=== PATIENT | male | born 1940 | race Caucasian/White ===

== ENCOUNTER 2019-08-26 09:46 | Inpatient (IN) | payer MEDICARE, OTHER ==
[2019-08-26 10:23] LABS: INR 0.97 (0.82-1.09)
[2019-08-26 10:36] LABS: Albumin 3.4 g/dL (3.2-5.2); Albumin/Globulin Ratio 1.2 (1-3); BUN/Creatinine Ratio 21.7 (8-20); Calcium 8.6 mg/dL (8.6-10.3); EGFR African American 74.6 (>60); EGFR Non-African American 61.7 (>60); Globulin 2.8 g/dL (2-4); Potassium 4.6 mmol/L (3.5-5.0); Total Bilirubin 1.9 mg/dL (0.2-1.0); Total Protein 6.2 g/dL (6.4-8.9)
[2019-08-26 10:46] LABS: Troponin I 3.55 ng/mL (<0.03)
[2019-08-26 10:54] LABS: ABS Basophils 0.6 10^3/ul (0-0.2); ABS Eosinophils 0.1 10^3/ul (0-0.6); ABS Lymphocytes 1.1 10^3/ul (1.0-4.8); ABS Monocytes 0.9 10^3/ul (0-0.8); ABS Neutrophils 7.4 10^3/ul (1.5-7.7); Eosinophil % 0.6 %; Hematocrit 35 % (42-52); Hemoglobin 11.3 g/dL (14.0-18.0); Lymphocyte % 10.8 %; Mean Corpuscular HGB Conc 33 g/dL (31-36); Mean Corpuscular Hemoglobin 36 pg (27-31); Mean Corpuscular Volume 109 fL (80-94); Mean Platelet Volume 10.7 fL (7.4-10.4); Platelet Count 128 10^3/uL (150-450); Red Blood Count 3.17 10^6 /uL (4.18-5.48); Red Cell Distribution Width 16 % (10-15); White Blood Count 10.1 10^3/uL (3.5-10.8)
[2019-08-26] MEDS ORDERED: Aspirin 81 mg CHEW TAB* 81 MG TAB.CHEW PO ONE (11:00)
[2019-08-26] MEDS ORDERED: NS 0.9% 1000 ML** 1,000 ML IV ONE ×2 (11:00→11:01)
--- NOTE | 2019-08-26 11:00 | ED ---
Shortness of Breath - HPI Summary HPI Summary: This patient is a 79 year old male presenting to [facility] with a cheif complaint of SOB since last 2 nights ago. He states patient was up most of the night last night with SOB and mild chest discomfort. He denies a Hx of any respiratory problems. He states it was initially caused by exertion before it affecting him at rest shortly after. He has no Hx of MS. He has a Hx of HTN. - History of Current Complaint Chief Complaint: EDShortnessOfBreath Time Seen by Provider: 08/26/19 10:52 Hx Obtained From: Patient Onset/Duration: Lasting Days - Allergy/Home Medications Allergies/Adverse Reactions: Allergies Allergy/AdvReac Type Severity Reaction Status Date / Time No Known Allergies Allergy Verified 08/26/19 09:50 Home Medications: Home Medications Allopurinol TAB* [Zyloprim 300 MG TAB*] 300 mg PO DAILY 08/26/19 [History Confirmed 08/26/19] Cyanocobalamin (Vitamin B-12) [B-12] 1,000 mcg PO DAILY 08/26/19 [History Confirmed 08/26/19] Lisinopril TAB* [Prinivil TAB*] 10 mg PO DAILY 08/26/19 [History Confirmed 08/26] Lovastatin (NF) [Mevacor (NF)] 20 mg PO 1700 08/26/19 [History Confirmed ] Metoprolol Tartrate TAB* [Lopressor TAB*] 50 mg PO BID 08/26/19 [History Confirmed 08/26/19] Multivit-Min/Folic/Vit K/Lycop [One Daily Mens 50+ Multiv] 1 tab PO DAILY [History Confirmed 08/26/19] PMH/Surg Hx/FS Hx/Imm Hx Cardiovascular History: Reports: Hx Hypertension Respiratory History: Denies: Hx Asthma Infectious Disease History: No Infectious Disease History: Denies: Traveled Outside the [place] in Last 30 Days - Family History Known Family History: Negative: Respiratory Disease, Seizure Disorder - Social History Substance Use Type: Reports: None Hx Tobacco Use: No Review of Systems Positive: Chest Pain Positive: Shortness Of Breath All Other Systems Reviewed And Are Negative: Yes Physical Exam - Summary Physical Exam Summary: Constitutional: Well-developed, Well-nourished, Alert. (-) Distressed Skin: Warm, Dry HENT: Normocephalic; Atraumatic Eyes: Conjunctiva normal Neck: Musculoskeletal ROM normal neck. (-) JVD, (-) Stridor, (-) Tracheal deviation Cardio: Rhythm regular, rate normal, Heart sounds normal; Intact distal pulses; Radial pulses are 2+ and symmetric. (-) Murmur Pulmonary/Chest wall: Effort normal. (-) Respiratory distress, (-) Wheezes, (-) Rales Abd: Soft, (-) tenderness, (-) Distension, (-) Guarding, (-) Rebound Musculoskeletal: (-) Edema Lymph: (-) Cervical adenopathy Neuro: Alert, Oriented x3 Psych: Mood and affect Normal Triage Information Reviewed: Yes Vital Signs On Initial Exam: Initial Vitals Temp Pulse Resp BP Pulse Ox 99.3 F 102 20 109/64 96 08/26/19 09:47 08/26/19 09:47 08/26/19 09:47 08/26/19 09:47 08/26/19 09:47 Vital Signs Reviewed: Yes Procedures - Sedation Patient Received Moderate/Deep Sedation with Procedure: No Diagnostics - Vital Signs Vital Signs Temp Pulse Resp BP Pulse Ox 08/26/19 09:47 99.3 F 102 20 109/64 96 - Laboratory Lab Results: Lab Results 08/26/19 08/26/19 08/26/19 Range/Units 10:03 10:03 10:03 WBC 10.1 (3.5-10.8) 10^3/uL RBC 3.17 L (4.18-5.48) 10^6 /uL Hgb 11.3 L (14.0-18.0) g/dL Hct 35 L (42-52) % MCV 109 H (80-94) fL MCH 36 H (27-31) pg MCHC 33 (31-36) g/dL RDW 16 H (10-15) % Plt Count 128 L (150-450) 10^3/uL MPV 10.7 H (7.4-10.4) fL Neut % (Auto) 73.6 % Lymph % (Auto) 10.8 % [place] % (Auto) 9.1 % Eos % (Auto) 0.6 % Baso % (Auto) 5.9 % Absolute Neuts (auto) 7.4 (1.5-7.7) 10^3/ul Absolute Lymphs (auto) 1.1 (1.0-4.8) 10^3/ul Absolute Monos (auto) 0.9 H (0-0.8) 10^3/ul Absolute Eos (auto) 0.1 (0-0.6) 10^3/ul Absolute Basos (auto) 0.6 H (0-0.2) 10^3/ul Absolute Nucleated RBC 0.0 10^3/ul Nucleated RBC % 0.0 INR (Anticoag Therapy) 0.97 (0.82-1.09) APTT Pending Sodium 140 (135-145) mmol/L Potassium 4.6 (3.5-5.0) mmol/L Chloride 110 (101-111) mmol/L Carbon Dioxide 21 L (22-32) mmol/L Anion Gap 9 (2-11) mmol/L BUN 25 H (6-24) mg/dL Creatinine 1.15 (0.67-1.17) mg/dL Est GFR ( Amer) 74.6 (>60) Est GFR (Non-Af Amer) 61.7 (>60) BUN/Creatinine Ratio 21.7 H (8-20) Glucose 156 H (70-100) mg/dL Calcium 8.6 (8.6-10.3) mg/dL Magnesium Pending Total Bilirubin 1.90 H (0.2-1.0) mg/dL AST 48 H (13-39) U/L ALT 19 (7-52) U/L Alkaline Phosphatase 89 (34-104) U/L Total Creatine Kinase Pending CK-MB (CK-2) Pending Troponin I 3.55 H* (<0.03) ng/mL Total Protein 6.2 L (6.4-8.9) g/dL Albumin 3.4 (3.2-5.2) g/dL Globulin 2.8 (2-4) g/dL Albumin/Globulin Ratio 1.2 (1-3) TSH Pending Result Diagrams: 08/26/19 10:03 08/26/19 10:03 Lab Statement: Any lab studies that have been ordered have been reviewed, and results considered in the medical decision making process. - Radiology CXR Radiology Interpretation Completed By: Radiologist Summary of Radiographic Findings: No acute cardiopulmonary disease by radiograph. ED Provider has reviewed this report. - EKG 0955 Cardiac Rate: NL - 97 BPM EKG Rhythm: Sinus Rhythm Summary of EKG Findings: No STEMI. TWI in III and aVF. ST Depression in V2-V6. Dr. Marlow has reviewed and interpreted this EKG. Course/Dx - Course Course Of Treatment: This patient is a 79 year old male presenting to [facility] with a chief complaint of SOB since last 2 nights ago. Physical exam was unremarkable. Troponin I was 3.55 H. Labs reveal RBC 3.17 L, Hgb 11.3 L, Hct 35 L, MCV 109 H, MCH 36 H, RDW 16 H, Plt Count 128 L, MPV 10.7 H, Absolute Monos 0.9 H, Absolute Basos 0.6 H. CO2 21 L, BUN 25 H, BUN/Creatinine Ratio 21.7 H, Glucose 156 H, Mg 1.4 L, Total Bilirubin 1.90 H, AST 48 H, Total Creatine Kinase 279 H, CK-MB 53.3 H, Total Protein 6.2 L. EKG at 0955 reveals TWI in III and aVF. ST Depression in V2-V6. No STEMI. Dr. Reaves, Hospitalist, accepted the patient for admission. This plan was discussed with the patient and he was agreeable with this plan. - Diagnoses Provider Diagnoses: NSTEMI (non-ST elevated myocardial infarction) - Critical Care Time Critical Care Time: 30-74 min - 60 minutes Discharge ED - Sign-Out/Discharge Documenting (check all that apply): Patient Departure - Admission - Discharge Plan Condition: Stable Disposition: ADMITTED TO [facility] - Billing Disposition and Condition Condition: STABLE Disposition: Admitted to [facility] - Attestation Statements Document Initiated by Farrukh: Yes Documenting Scribe: Andrew Castro Provider For Whom Farrukh is Documenting (Include Credential): Aneudy Marlow DO Scribmadeleine Attestation: Andrew Harman scribed for Aneudy Marlow DO on 08/26/19 at 1419. Scribe Documentation Reviewed: Yes Provider Attestation: The documentation as recorded by the Andrew silva accurately reflects the service I personally performed and the decisions made by , Aneudy Marlow DO Status of Scribe Document: Viewed
[2019-08-26 11:01] LABS: Magnesium 1.4 mg/dL (1.9-2.7)
[2019-08-26] MEDS ORDERED: Magnesium Sulfate 1 GM IV* 1 GM/100 ML BAG IV ONE (11:03)
[2019-08-26 11:06] LABS: CKMB ng/mL 53.3 ng/mL (0.6-6.3)
[2019-08-26 11:14] LABS: TSH (Thyroid Stimulating Horm) 3.39 mcIU/mL (0.34-5.60)
[2019-08-26 11:16] LABS: Activated Partial Thrombo Time 30.3 seconds (26.0-38.0)
[2019-08-26] MEDS: Heparin DRIP 25,000 UNITS(*) 25,000 UNITS/500 ML BAG IV SCH (12:12)
[2019-08-26] MEDS: Heparin VIAL(*) 5000 UNITS/ML VIAL (FIVE THOUSAND) IV PRN (12:28)
[2019-08-26] MEDS ORDERED: Ticagrelor* 90 MG TAB PO ONE (12:34)
[2019-08-26] MEDS ORDERED: Furosemide IV* 10 MG/ML 2 ML VIAL (20 MG) IV SLOW PU ONE (12:39)
[2019-08-26] MEDS ORDERED: Magnesium Sulfate IV* 3 GM in NS 0.9% 100 ML* 100 ML IVPB ONE (13:11)
[2019-08-26] MEDS ORDERED: Iodixanol* (CONTRAST) 320 MG/ML 100 ML SDV IV ONE (13:24)
[2019-08-26 13:28] LABS: Troponin I 7.8 ng/mL (<0.03)
[2019-08-26] MEDS ORDERED: Acetaminophen TAB* 325 MG PO PRN (14:19)
[2019-08-26] MEDS ORDERED: Thiamine INJ* 100 MG/ML 2 ML VIAL IM ONE (14:19)
--- NOTE | 2019-08-26 14:29 | HP ---
CC: Dr. Gayle; Dr. Parviz Tamayo HISTORY AND PHYSICAL: DATE OF ADMISSION: 08/26/19 TIME OF EVALUATION: 12:15 p.m. PRIMARY CARE PROVIDER: Dr. Gayle. CONSULTING PERITONEAL DIALYSIS REGISTERED NURSE: Parviz Tamayo DO CHIEF COMPLAINT: Shortness of breath. HISTORY OF PRESENT ILLNESS: Mr. Oliver is a 79-year-old male with a past medical history of hypertension, hyperlipidemia, right renal artery stenosis, status post angioplasty, who presented to the emergency room with complaints of shortness of breath. The patient states that he was in his usual state of health until 08/24/19 when he started to notice shortness of breath with exertion. He says that he was trying to cook and he would become short of breath. He would sit down at the kitchen table, rest, and he was able to continue his activities. He states that that night he had some shortness of breath while lying flat, but he sat up , felt better and was able to sleep after that. Yesterday, the symptoms were more intense and he had significant orthopnea and paroxysmal nocturnal dyspnea. He states that early this morning he called [facility] to be seen and he was advised to come to the emergency room for further evaluation. When asked about chest pain, the patient is adamant that he had no chest pain during his symptoms , but he does endorse some chest pressure that he describes as "it was difficult to take a deep breath." He denies palpitations, nausea, vomiting, diaphoresis. He states around [place] time his PCP stopped his hydrochlorothiazide and cut down his lisinopril from 20 to 10 mg p.o. daily. He states that he gained 8 pounds since that time that he attributed to worse diet as he states he has been snacking a lot. PAST MEDICAL HISTORY: 1. Hypertension. 2. Hyperlipidemia. 3. Gout. 4. Peripheral vascular disease with right renal artery stenosis, status post stent in 2002. MEDICATION LIST: 1. Allopurinol 300 mg p.o. daily. 2. Vitamin B12 1000 mcg p.o. daily. 3. Lisinopril 10 mg p.o. daily. 4. Lovastatin 20 mg p.o. daily. 5. Metoprolol tartrate 50 mg p.o. b.i.d. 6. Multivitamin 1 tablet p.o. daily. ALLERGIES: No known drug allergies. FAMILY HISTORY: His mother had a history of hypertension, heart disease. His father had a history of colon and prostate cancer. SOCIAL HISTORY: The patient was a smoker from his early 20s until age 49 up to a pack and half a day. He states that he drinks alcohol 3 days a week, usually a bottle of wine or half a bottle of bourbon, but he denies any history of alcohol withdrawal. No history of drug use. 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 REVIEW OF SYSTEMS: A 14-point review of systems was performed, and all the pertinent negatives and positive findings are in the HPI. PHYSICAL EXAMINATION GENERAL: The patient is a pleasant, elderly gentleman, sitting up in the ED stretcher, in no acute distress. VITAL SIGNS: Temperature 99.3, heart rate is 93, respiratory rate is 21, oxygen saturation is 96% on room air, and blood pressure is 105/63. NECK: There is JVD at 45 degrees. CHEST: Breath sounds bilaterally with right basilar crackles. CVS: Normal S1, S2. Regular rate and rhythm. ABDOMEN: Soft, nontender, and nondistended. Bowel sounds are present. EXTREMITIES: There is [id number] bilateral lower extremity pitting edema. No calf tenderness. NEUROLOGIC: He is alert and oriented x3. Able to move all 4 extremities. LABORATORY AND IMAGING DATA: The patient had a CBC that showed WBC of 10.1, hemoglobin of 11.3, hematocrit of 35, platelets of 128 with 73% neutrophils. INR is 0.97. Chemistry showed a sodium of 140, potassium of 4.6, chloride of 110, bicarb of 21, BUN of 25, creatinine of 1.15, glucose of 156, calcium of 8.6 , magnesium is 1.4. LFTs showed total bilirubin of 1.9, AST of 48, ALT of 19, total CK is 279, CK-MB 53. Troponin is 3.5. BNP is greater than 1300. TSH is 3.39. EKG showed sinus rhythm at 97 beats per minute with T-wave inversions in III and aVF. No prior EKG to compare. Chest x-ray showed no acute cardiopulmonary process by radiograph. ASSESSMENT AND PLAN: Mr. Oliver is a 79-year-old male with a past medical history of hypertension, hyperlipidemia, peripheral vascular disease (right renal artery stenosis with stent), who presented to the emergency room with complaints of dyspnea on exertion progressing with orthopnea and paroxysmal nocturnal dyspnea, found to have new congestive heart failure and likely acute coronary syndrome. 1. Acute coronary syndrome: The patient denies complaints of chest pain, but he has progressive dyspnea initially on exertion and now orthopnea and paroxysmal nocturnal dyspnea with T-wave inversions in inferior wall and initial troponin at 3.5. The patient will be admitted to telemetry floor. We will check serial troponins and he will be treated with aspirin, heparin drip, statin, and metoprolol. I discussed the case with Cardiology (Dr. Tamayo), who also recommended loading the patient with Brilinta. He will see the patient in consultation. We will order a transthoracic echocardiogram as I suspect his EF is likely depressed in the setting of possible ischemic disease and also considerable alcohol use. 2. Newly diagnosed congestive heart failure. The patient should have an echocardiogram. I suspect he likely has a depressed ejection fraction in the setting of ischemic disease and significant alcohol use. I believe this has probably been going on for some time, but it has been exacerbated now as his diuretic was discontinued about a month ago and he endorses weight gain of at least 8 pounds since. He has been noncompliant with his diet with his telling that he has been eating more snacks including pretzels, but I believe that there is likely an ischemic component driving the worsening of his congestive heart failure. We will continue diuresis with furosemide as tolerated. I suspect his minimal troponin elevation is likely secondary to liver congestion. 3. Alcohol use. Patient endorses significant alcohol intake three days a week but denies prior episodes of withdrawal. Will place on [facility] protocol and monitor. 4. Hypomagnesemia. We will replete. 5. Hypertension. His blood pressure is on the lower side, so for now I am going to hold his lisinopril and continue metoprolol at a lower dose of 25 mg p.o. twice a day with holding parameters. She will have enough blood pressure room for diuresis. 6. Hyperlipidemia. We will continue statin, but we will change to high dose atorvastatin. We will check a fasting lipid profile. 7. Gout. We will continue allopurinol. 8. DVT prophylaxis. The patient has a score of 3 on the DVT Prophylaxis Assessment Guide and he is on a heparin drip. 9. Code status is full. TIME SPENT: Approximately 60 minutes was spent with the patient interview, medical record review, physical examination to complete admission, more than half of this time was spent [id number] with the patient and coordination of care. [id number]/[facility] #: [id number] MTDD
[2019-08-26] MEDS ORDERED: LORazepam TAB(*) 1 MG PO SCH (15:00)
[2019-08-26] MEDS ORDERED: Furosemide IV* 10 MG/ML 2 ML VIAL (20 MG) IV ONE (15:49)
[2019-08-26] MEDS ORDERED: Metoprolol Tartrate TAB* 25 MG PO ONE (15:50)
--- NOTE | 2019-08-26 16:02 | CONSULT ---
Subjective Date of Service: 08/26/19 Interval History: Admission Date: 08/26/19 Consult Date 08/26/2019 Service: Hospitalist PCP: Dr. Gayle CHIEF COMPLAINT: Shortness of breath Reason for consult: CHF, [place] HISTORY OF PRESENT ILLNESS: Mr. Oliver is a 79-year-old man with a history as below. He was in his usual state of health until this past when he developed INTERIANO with activity and later orthopnea and PND. He also at some point had bilateral arm "tiredness" at night and some upper chest "rattling." He currently denies any symptoms at rest but does become dyspneic with conversation. Had fluid retention in the past related to cirrhosis and had been on several diuretics, most recent HCTZ not currently. PAST MEDICAL HISTORY: 1. Hypertension. 2. Hyperlipidemia. 3. Gout. 4. Peripheral vascular disease with right renal artery stenosis, status post stent in 2002. 5. Intermittent alcoholism 6. Cirrhosis 7. Alcohol neuropathy ALLERGIES: No known drug allergies. FAMILY HISTORY: His mother had a history of hypertension, heart disease. His father had a history of colon and prostate cancer. SOCIAL HISTORY: The patient was a smoker from his early 20s until age 49 up to a pack and half a day. Had drank very heavily previously, quit for a year due to liver disease, restarted about 6 weeks ago at 2 bottles or a bottle of bourbon a week. No history of drug use. 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 Medications Active Medications: Acetaminophen (Tylenol Tab*) 650 mg PO Q4H PRN PRN Reason: MILD PAIN or TEMP > 100.4 Allopurinol (Zyloprim Tab*) 300 mg PO DAILY TYREL Aspirin (Aspirin Ec Tab*) 81 mg PO DAILY TYREL Atorvastatin Calcium (Lipitor*) 80 mg PO 2100 ONE Stop: 08/26/19 21:01 Cyanocobalamin (Vitamin B12 Tab*) 1,000 mcg PO DAILY TYREL Folic Acid (Folvite Tab*) 1 mg PO DAILY TYREL Heparin Sodium (Porcine) (Heparin Vial(*)) 0 units IV .BOLUS PRN PRN Reason: BOLUS PER HEPARIN DRIP Last Admin: 08/26/19 12:28 Dose: 4,000 units Heparin Sodium/Dextrose (Heparin Drip 25,000 Units(*)) 25,000 units in 500 mls @ 0 mls/hr IV PER RATE [facility]; Protocol Last Admin: 08/26/19 12:12 Dose: 20 mls/hr Lorazepam (Ativan Tab(*)) 0 - 6 mg PO .PER [facility] PROTOCOL [facility]; Protocol Metoprolol Tartrate (Lopressor Tab*) 25 mg PO BID [facility] Multivitamins/Minerals (Theragran/Minerals Tab*) 1 tab PO DAILY [facility] Thiamine HCl (Vitamin B-1 Tab*) 100 mg PO DAILY [facility] Ticagrelor (Brilinta*) 90 mg PO BID [facility] Home Medications: Allopurinol TAB* [Zyloprim 300 MG TAB*] 300 mg PO DAILY 08/26/19 [History Confirmed 08/26/19] Cyanocobalamin (Vitamin B-12) [B-12] 1,000 mcg PO DAILY 08/26/19 [History Confirmed 08/26/19] Lisinopril TAB* [Prinivil TAB*] 10 mg PO DAILY 08/26/19 [History Confirmed 08/26] Lovastatin (NF) [Mevacor (NF)] 20 mg PO 1700 08/26/19 [History Confirmed ] Metoprolol Tartrate TAB* [Lopressor TAB*] 50 mg PO BID 08/26/19 [History Confirmed 08/26/19] Multivit-Min/Folic/Vit K/Lycop [One Daily Mens 50+ Multiv] 1 tab PO DAILY [History Confirmed 08/26/19] Review of Systems - Measurements Intake and Output: Intake and Output Last 24 Hours 08/24/19 08/25/19 08/26/19 08/27/19 06:59 06:59 06:59 06:59 Intake Total 500 Output Total 275 Balance 225 Weight 189 lb 12.8 oz Intake: IV Fluids 150 Oral 350 Output: Urine 275 - Review of Systems Constitutional Symptoms: Positive: Weight Loss Negative: Weight Gain, Fever, Night Sweats Dermatology: Negative: Rash, Skin Lesions HEENT: Negative: Change in Hearing, Vertigo Eyes: Negative: Change in Vision, Double Vision Thyroid: Positive: Weight Loss Negative: Palpitations, Weight Gain Pulmonary: Positive: Shortness of Breath, Exercise Intolerance Negative: Cough, Sputum, Hemoptysis, COPD, Asthma, Home Oxygen Cardiology: Positive: Shortness of Breath, Swelling of Ankles, Edema, Paroxysmal Nocturnal Dyspnea, Orthopnea Negative: Palpitations, Peripheral Vascular Dis, Faintness, Syncope, Claudication Gastroenterology: Negative: Blood in Stools, Haematemesis, Melena Review of Systems Statement: All other review of systems negative, unless stated above. Objective Vital Signs: Temp Pulse Resp BP Pulse Ox 97.8 F 88 22 117/68 99 08/26/19 15:19 08/26/19 15:19 08/26/19 15:19 08/26/19 15:19 08/26/19 15:19 Oxygen Devices in Use Now: None Appearance: not toxic appearing, very pleasant Ears/Nose/Mouth/Throat: Clear Oropharnyx, Mucous Membranes Moist Neck: Trachea Midline, - - uncertain jvp Respiratory: - - mild tachypnea and increased work of breathing, mild rales bases Cardiovascular: RRR, - - no significant murmur, mild edema Abdominal: NL Sounds; No Tenderness; No Distention Extremities: No Clubbing, Cyanosis Skin: No Rash or Ulcers Neurological: Alert and Oriented x 3 Laboratory Results: 08/26/19 10:03 08/26/19 10:03 INR (Anticoag Therapy) 0.97 (0.82-1.09) 08/26/19 10:03 APTT 30.3 seconds (26.0-38.0) 08/26/19 10:03 Total Bilirubin 1.90 mg/dL (0.2-1.0) H 08/26/19 10:03 AST 48 U/L (13-39) H 08/26/19 10:03 ALT 19 U/L (7-52) 08/26/19 10:03 Alkaline Phosphatase 89 U/L (34-104) 08/26/19 10:03 CK-MB (CK-2) 53.3 ng/mL (0.6-6.3) H 08/26/19 10:03 B-Natriuretic Peptide > 1300 pg/mL (<=100) H 08/26/19 10:03 Total Protein 6.2 g/dL (6.4-8.9) L 08/26/19 10:03 Albumin 3.4 g/dL (3.2-5.2) 08/26/19 10:03 Globulin 2.8 g/dL (2-4) 08/26/19 10:03 Albumin/Globulin Ratio 1.2 (1-3) 08/26/19 10:03 TSH 3.39 mcIU/mL (0.34-5.60) 08/26/19 10:03 08/26/19 08/26/19 10:03 13:02 Troponin I 3.55 H* 7.80 H* Diagnostic Imaging: Exam Date: 08/26/19 CTA CHEST IMPRESSION: 1. No pulmonary embolism 2. Right-sided heart failure suggested by contrast reflux into the hepatic veins. 3. Interstitial pulmonary edema with small bilateral pleural effusions. 4. Cirrhotic morphology of the liver suspected. Further evaluation by right upper quadrant ultrasound on an elective basis is recommended. 5. Gynecomastia. EKG Data: ekg 08/26/2019 NSR, < [address] elevation inferior leads with St depression precordial and 1/aVL ekg repeat today improvement of all st segment changes with persistent inferior T wave inversions Assessment/Plan 1. ACS 2. CHF 3. Alcohol cirrhosis 4. Macrocytic anemia - continue aspirin 81 mg po daily, brilinta 90 mg po bid (was loaded with 180 mg ) and heparin gtt - continue metoprolol, dose reduction from home noted - Hold AceI for now - ETOH withdrawal protocol - Lipitor daily, LFt's noted - Lasix 20 mg IV x 1 repeat now (ordered) - GI consult, ordered and discussed with Dr. Nolen - Prior records (requested) - Repeat EKG tomorrow (ordered) and trend cTnI to peak - Echocardiogram tomorrow - Cardiac catheterization with intent for revascularization indicated and recommended. Risks, benefits and alternatives discussed and patient wishes to proceed. Will plan pending GI evaluation Thank you for allowing me to participate in the cardiovascular care of this patient. Please do not hesitate to contact me with questions or concerns.
[2019-08-26 16:42] LABS: Troponin I 8.27 ng/mL (<0.03)
[2019-08-26 19:05] LABS: EGFR African American 65.9 (>60); EGFR Non-African American 54.5 (>60)
[2019-08-26] MEDS: Metoprolol Tartrate TAB* 25 MG PO SCH (20:09)
[2019-08-26] MEDS ORDERED: Atorvastatin* 80 MG TAB PO ONE (21:00)
[2019-08-26] MEDS ORDERED: Metoprolol Tartrate TAB* 50 mg PO SCH (21:00)
[2019-08-26 22:22] LABS: Troponin I 19.11 ng/mL (<0.03)
[2019-08-27 01:34] LABS: Troponin I 19.55 ng/mL (<0.03)
[2019-08-27 05:53] LABS: BUN/Creatinine Ratio 24.4 (8-20); Calcium 8.3 mg/dL (8.6-10.3); EGFR African American 71.7 (>60); EGFR Non-African American 59.3 (>60); HDL Cholesterol 59.2 mg/dL; Magnesium 1.9 mg/dL (1.9-2.7)
[2019-08-27 05:59] LABS: ABS Eosinophils 0.2 10^3/ul (0-0.6); ABS Lymphocytes 1.5 10^3/ul (1.0-4.8); ABS Monocytes 0.8 10^3/ul (0-0.8); ABS Neutrophils 6.6 10^3/ul (1.5-7.7); Eosinophil % 1.7 %; Hematocrit 34 % (42-52); Hemoglobin 11.2 g/dL (14.0-18.0); Lymphocyte % 16.5 %; Mean Corpuscular HGB Conc 34 g/dL (31-36); Mean Corpuscular Hemoglobin 36 pg (27-31); Mean Corpuscular Volume 108 fL (80-94); Mean Platelet Volume 11.1 fL (7.4-10.4); Nucleated Red Blood Cells % 0.1; Platelet Count 116 10^3/uL (150-450); Red Blood Count 3.09 10^6 /uL (4.18-5.48); Red Cell Distribution Width 16 % (10-15); White Blood Count 9.2 10^3/uL (3.5-10.8)
[2019-08-27 06:13] LABS: Troponin I 14.72 ng/mL (<0.03)
[2019-08-27] MEDS: Heparin VIAL(*) 5000 UNITS/ML VIAL (FIVE THOUSAND) IV PRN ×2 (06:19→21:28)
[2019-08-27] MEDS: Allopurinol TAB* 300 MG PO SCH (08:15)
[2019-08-27] MEDS: Thiamine TAB* 100 MG TAB PO SCH (08:15)
[2019-08-27] MEDS: Ticagrelor* 90 MG TAB PO SCH ×2 (08:15→21:36)
[2019-08-27] MEDS: Cyanocobalamin TAB* 500 MCG PO SCH (08:15)
[2019-08-27] MEDS: Aspirin EC TAB* 81 MG TAB.EC PO SCH (08:15)
[2019-08-27] MEDS: Multivitamins/Minerals TAB PO SCH (08:15)
[2019-08-27] MEDS: Folic Acid TAB* 1 MG PO SCH (08:15)
[2019-08-27] MEDS: Metoprolol Tartrate TAB* 25 MG PO SCH (08:15)
[2019-08-27] MEDS ORDERED: Furosemide IV* 10 MG/ML VIAL (40 MG) IV SLOW PU ONE (08:26)
[2019-08-27] MEDS ORDERED: Lisinopril TAB* 10 MG PO SCH (09:00)
[2019-08-27] MEDS ORDERED: Furosemide IV* 10 MG/ML 2 ML VIAL (20 MG) IV SLOW PU ONE (11:00)
[2019-08-27] MEDS ORDERED: Metoprolol Succinate XL TAB* 25 MG PO ONE (11:12)
--- NOTE | 2019-08-27 11:25 | ECHO ---
*[facility]* [place] [address] Fax #: [phone] Transthoracic Echocardiogram Patient: Vipul Oliver : 1940 Study Date: 08/27/2019 Age: 79 Gender: M HR: 97 bpm Height: 71 in /180.3 cm BSA: 2.02 m^2 Weight: 179.6 lb /81.6 kg BMI: 25.1 kg/m^2 *Flocculator Operator: Kizzy Michael *Referring Physician: * Monica HerbertReading Physician: * Parviz Tamayo MD Indications: Congestive Heart Failure. History: Risk factors: COPD. Hypertension. Conclusions Summary: - Left ventricle: The cavity size is normal. Wall thickness is mildly increased. Systolic function is reduced study is non-diagnostic to evaluate LVEF or wall motion - Right ventricle: Not well visualized. - Atrial septum: No defect or patent foramen ovale is identified. - Pulmonary arteries: Systolic pressure can not be accurately estimated. - No significant valvular abnormalities noted. Recommendations: None prior for comparison, will arrange limited study with definity Wednesday08/28/2019 Study data: Transthoracic echocardiogram. Procedure: Transthoracic echocardiography was performed. Image quality was suboptimal. Complete 2D, spectral Doppler, and color flow Doppler. Location: Bedside. Patient status: Inpatient. Patient room number: 441-0-1. Rhythm: Atrial fibrillation. Findings Left ventricle: The cavity size is normal. Wall thickness is mildly increased. Systolic function is reduced study is non-diagnostic to evaluate LVEF or wall motion Left ventricular diastolic function parameters are indeterminate. Right ventricle: Not well visualized. Left atrium: The atrium is moderately dilated. Right atrium: The atrium is dilated. Atrial septum: No defect or patent foramen ovale is identified. Mitral valve: Appears calcified. The leaflets are normal thickness. No echocardiographic evidence for prolapse. There is no evidence of stenosis. There is mild regurgitation. Aortic valve: The valve is trileaflet. The leaflets are mildly calcified. There is no evidence of stenosis. There is trace regurgitation. Tricuspid valve: The valve is structurally normal. There is no evidence of stenosis. There is trace regurgitation. Pulmonic valve: The valve is structurally normal. There is no evidence of stenosis. There is trace regurgitation. Aorta: The aortic root appears normal. The aortic arch appears normal. Pericardium: There is no significant pericardial effusion. Pulmonary arteries: Systolic pressure can not be accurately estimated. Systemic veins: Inferior vena cava: The vessel is normal in size. There is (>= 50%) respiratory change in the IVC dimension. Pulmonary veins: The Pulmonary veins appear normal. Measurements Left ventricle Value Ref Right atrium Value Ref CORAL, LAX 5.3 cm 4.2 - SI dim, ES (H) 5.4 cm 3.4 - 5.3 5.8 ML dim, ES, A4C (H) 4.5 cm 2.6 - 4.4 ESD, LAX 3.6 cm 2.5 - SI dim, ES, A4C (H) 5.4 cm 3.4 - 5.3 4.0 FS, LAX 32 % Aortic valve Value Ref PW, ED, LAX (H) 1.4 cm 0.6 - Peak v, S 1.19 m/sec --------- 1.0 VTI, S 27.0 cm --------- FS 32 % Mean grad, S 3.0 mm Hg --------- Mid-wall FS 13 % -------- Peak grad, S 6.0 mm Hg --------- PW, ED (H) 1.4 cm 0.6 - DHRUV, VTI 2.51 cm^2 --------- 1.0 DHRUV, Vmax 2.28 cm^2 --------- PW/ID, ED 0.26 -------- E', lat claudine, TDI 10.1 cm/sec >=10.0 Mitral valve Value Ref E/e', lat claudine, TDI 8 -------- Peak E 0.82 m/sec ------ --- E', med claudine, TDI 7.4 cm/sec >=7.0 Peak A 0.69 m/sec --- ------ E/e', med claudine, TDI 11 -------- Decel time 227 ms ------ --- E', avg, TDI 8.8 cm/sec -------- Peak grad, D 2.7 mm Hg ------ --- E/e', avg, TDI 9 <=14 Peak E/A ratio 1.2 --- ------ LVOT Value Ref Pulmonic valve Value Ref Diam, S 2.00 cm -------- Peak v, S 0.76 m/sec --------- Area 3.1 cm^2 -------- Peak grad, S 2.0 mm Hg --------- Peak sally, S 0.87 m/sec -------- Mean grad, S 2 mm Hg -------- Aortic root Value Ref SV 68 ml -------- Root diam 3.6 cm <4.2 Ventricular septum Value Ref Ascending aorta Value Ref IVS, ED (H) 1.4 cm 0.6 - AAo AP diam, S 3.6 cm --------- 1.0 Decending aorta Value Ref Right ventricle Value Ref Jasmine peak sally 0.82 m/sec --------- CORAL, LAX 3.6 cm -------- CORAL minor ax, A4C (H) 3.7 cm 1.9 - Inferior vena cava Value Ref mid 3.5 Diam 2.2 cm --------- Left atrium Value Ref ML dim, A4C 4.4 cm -------- SI dim, A4C 4.6 cm -------- Vol/bsa, ES, 1-p (H) 42 ml/m^2 12 - 37 A4C Vol/bsa, ES, A/L (H) 66 ml/m^2 16 - 34 Legend: (L) and (H) samaria values outside specified reference range. Prepared and electronically signed by Parviz Tamayo MD 08/27/2019 11:17
--- NOTE | 2019-08-27 11:46 | PN ---
Subjective Date of Service: 08/27/19 Interval History: HOSPITALIST PROGRESS NOTE Patient seen and examined at bedside. Care reviewed and d/w Nicole Anguiano RN. He states he had a better night last night. Still needs HOB elevation, but was able to sleep more than at home. Denies chest pain or pressure, palpitations. Appetite is preserved, denies N/V. Family History: Unchanged from Admission Social History: Unchanged from Admission Past Medical History: Unchanged from Admission Objective Active Medications: Acetaminophen (Tylenol Tab*) 650 mg PO Q4H PRN PRN Reason: MILD PAIN or TEMP > 100.4 Allopurinol (Zyloprim Tab*) 300 mg PO DAILY [facility] Last Admin: 08/27/19 08:15 Dose: 300 mg Aspirin (Aspirin Ec Tab*) 81 mg PO DAILY [facility] Last Admin: 08/27/19 08:15 Dose: 81 mg Atorvastatin Calcium (Lipitor*) 40 mg PO 2100 [facility] Cyanocobalamin (Vitamin B12 Tab*) 1,000 mcg PO DAILY [facility] Last Admin: 08/27/19 08:15 Dose: 1,000 mcg Folic Acid (Folvite Tab*) 1 mg PO DAILY [facility] Last Admin: 08/27/19 08:15 Dose: 1 mg Heparin Sodium (Porcine) (Heparin Vial(*)) 0 units IV .BOLUS PRN PRN Reason: BOLUS PER HEPARIN DRIP Last Admin: 08/27/19 06:19 Dose: 2,000 units Heparin Sodium/Dextrose (Heparin Drip 25,000 Units(*)) 25,000 units in 500 mls @ 0 mls/hr IV PER RATE [facility]; Protocol Last Admin: 08/26/19 12:12 Dose: 20 mls/hr Lorazepam (Ativan Tab(*)) 0 - 6 mg PO .PER [facility] PROTOCOL [facility]; Protocol Last Admin: 08/27/19 02:27 Dose: 2 mg Metoprolol Succinate (Toprol Xl Tab*) 50 mg PO BID [facility] Multivitamins/Minerals (Theragran/Minerals Tab*) 1 tab PO DAILY [facility] Last Admin: 08/27/19 08:15 Dose: 1 tab Thiamine HCl (Vitamin B-1 Tab*) 100 mg PO DAILY [facility] Last Admin: 08/27/19 08:15 Dose: 100 mg Ticagrelor (Brilinta*) 90 mg PO BID [facility] Last Admin: 08/27/19 08:15 Dose: 90 mg Vital Signs - 8 hr 08/27/19 08/27/19 08/27/19 04:03 04:27 06:00 Temperature 97.6 F 98.1 F Pulse Rate 90 103 Respiratory 16 16 16 Rate Blood Pressure 110/55 126/67 (mmHg) O2 Sat by Pulse 95 98 Oximetry 08/27/19 08/27/19 08/27/19 08:00 10:00 11:19 Temperature 97.3 F 98.4 F Pulse Rate 90 95 102 Respiratory 20 20 32 Rate Blood Pressure 138/71 119/62 (mmHg) O2 Sat by Pulse 96 95 95 Oximetry Oxygen Devices in Use Now: None Appearance: Elderly gentleman sitting up in bed in NAD, eating breakfast. Eyes: No Scleral Icterus Ears/Nose/Mouth/Throat: Mucous Membranes Moist Neck: Trachea Midline Respiratory: Symmetrical Chest Expansion and Respiratory Effort, - - BS+ bilaterally wit bilateral crackles Cardiovascular: RRR - Normal S1 and S2 Abdominal: NL Sounds; No Tenderness; No Distention Extremities: - - Bilateral LE mild to moderate pitting edema Neurological: Alert and Oriented x 3, NL Muscle Strength and Tone Nutrition: Taking PO's Result Diagrams: 08/27/19 05:11 08/27/19 05:11 Assess/Plan/Problems-Billing Assessment: Mr Oliver is a 79yo M with PMH of HTN, HLD, gout, right renal artery stenosis s/p stent, alcohol abuse, liver cirrhosis, who presented to ED with c/ o progressive dyspnea, found to have ACS and newly diagnosed CHF. - Patient Problems (1) CHF (congestive heart failure) Comment: - Newly diagnosed, awaiting echocardiogram. - Continue diuresis with Furosemide. - It could be associated with ischemic CMP, but it could also be ETOH induced. (2) ACS (acute coronary syndrome) Comment: - Troponin peaked at 19.5. - Chest pain free all along. - Cardiology input appreciated. - Continue Aspirin, Brilinta, Heparin drip, Metoprolol, and Atorvastatin. (3) Alcohol abuse Comment: - Continue WAM protocol. (4) Liver cirrhosis Comment: - Patient continues to drink. - GI evaluation prior to cardiac cath. (5) Gout Comment: - Continue Allopurinol. (6) DVT prophylaxis Comment: - Heparin drip. (7) Full code status Status and Disposition: Inpatient.
[2019-08-27] MEDS ORDERED: Magnesium Sulfate 2 GM IV* 2 GM/50 ML BAG IVPB ONE (12:12)
--- NOTE | 2019-08-27 12:29 | PN ---
Subjective Date of Service: 08/27/19 Interval History: f/u ACS, CHF, alcohol cirrhosis - Diuresing, breathing improving - no chest discomfort - echo no significant valve issues, moderate LV dysfunction non-diagnostic tele: NSR, sinus tachycardia, no arrhythmias Medications Active Medications: Acetaminophen (Tylenol Tab*) 650 mg PO Q4H PRN PRN Reason: MILD PAIN or TEMP > 100.4 Allopurinol (Zyloprim Tab*) 300 mg PO DAILY [facility] Last Admin: 08/27/19 08:15 Dose: 300 mg Aspirin (Aspirin Ec Tab*) 81 mg PO DAILY [facility] Last Admin: 08/27/19 08:15 Dose: 81 mg Atorvastatin Calcium (Lipitor*) 40 mg PO 2100 [facility] Cyanocobalamin (Vitamin B12 Tab*) 1,000 mcg PO DAILY [facility] Last Admin: 08/27/19 08:15 Dose: 1,000 mcg Folic Acid (Folvite Tab*) 1 mg PO DAILY [facility] Last Admin: 08/27/19 08:15 Dose: 1 mg Furosemide (Lasix Tab*) 20 mg PO DAILY [facility] Heparin Sodium (Porcine) (Heparin Vial(*)) 0 units IV .BOLUS PRN PRN Reason: BOLUS PER HEPARIN DRIP Last Admin: 08/27/19 06:19 Dose: 2,000 units Heparin Sodium/Dextrose (Heparin Drip 25,000 Units(*)) 25,000 units in 500 mls @ 0 mls/hr IV PER RATE [facility]; Protocol Last Admin: 08/26/19 12:12 Dose: 20 mls/hr Magnesium Sulfate (Magnesium Sulfate 2 Gm Iv*) 2 gm in 50 mls @ 50 mls/hr IVPB ONCE ONE Stop: 08/27/19 13:11 Lisinopril (Prinivil Tab*) 2.5 mg PO DAILY [facility] Lorazepam (Ativan Tab(*)) 0 - 6 mg PO .PER [facility] PROTOCOL [facility]; Protocol Last Admin: 08/27/19 02:27 Dose: 2 mg Metoprolol Succinate (Toprol Xl Tab*) 50 mg PO BID [facility] Multivitamins/Minerals (Theragran/Minerals Tab*) 1 tab PO DAILY [facility] Last Admin: 08/27/19 08:15 Dose: 1 tab Thiamine HCl (Vitamin B-1 Tab*) 100 mg PO DAILY [facility] Last Admin: 08/27/19 08:15 Dose: 100 mg Ticagrelor (Brilinta*) 90 mg PO BID [facility] Last Admin: 08/27/19 08:15 Dose: 90 mg Objective Vital Signs: Temp Pulse Resp BP Pulse Ox 98.4 F 102 32 119/62 95 08/27/19 10:00 08/27/19 11:19 08/27/19 11:19 08/27/19 10:00 08/27/19 11:19 Oxygen Devices in Use Now: None Appearance: not toxic appearing, very pleasant Ears/Nose/Mouth/Throat: Clear Oropharnyx, Mucous Membranes Moist Neck: Trachea Midline, - - uncertain jvp Respiratory: - - mild tachypnea and increased work of breathing, mild rales bases Cardiovascular: RRR, - - no significant murmur, mild edema Abdominal: NL Sounds; No Tenderness; No Distention Extremities: No Clubbing, Cyanosis Skin: No Rash or Ulcers Neurological: Alert and Oriented x 3 Laboratory Results: 08/27/19 05:11 08/27/19 05:11 INR (Anticoag Therapy) 0.97 (0.82-1.09) 08/26/19 10:03 APTT 52.8 seconds (26.0-38.0) H 08/27/19 05:11 Total Bilirubin 1.90 mg/dL (0.2-1.0) H 08/26/19 10:03 AST 48 U/L (13-39) H 08/26/19 10:03 ALT 19 U/L (7-52) 08/26/19 10:03 Alkaline Phosphatase 89 U/L (34-104) 08/26/19 10:03 CK-MB (CK-2) 53.3 ng/mL (0.6-6.3) H 08/26/19 10:03 B-Natriuretic Peptide > 1300 pg/mL (<=100) H 08/26/19 10:03 Total Protein 6.2 g/dL (6.4-8.9) L 08/26/19 10:03 Albumin 3.4 g/dL (3.2-5.2) 08/26/19 10:03 Globulin 2.8 g/dL (2-4) 08/26/19 10:03 Albumin/Globulin Ratio 1.2 (1-3) 08/26/19 10:03 Triglycerides 57 mg/dL 08/27/19 05:11 Cholesterol 107 mg/dL 08/27/19 05:11 LDL Cholesterol 36 mg/dL 08/27/19 05:11 HDL Cholesterol 59.2 mg/dL 08/27/19 05:11 TSH 3.39 mcIU/mL (0.34-5.60) 08/26/19 10:03 08/26/19 08/26/19 08/26/19 10:03 13:02 16:01 Troponin I 3.55 H* 7.80 H* 8.27 H* 08/26/19 08/27/19 08/27/19 21:52 01:05 05:11 Troponin I 19.11 H* 19.55 H* 14.72 H* Diagnostic Imaging: Exam Date: 08/26/19 CTA CHEST IMPRESSION: 1. No pulmonary embolism 2. Right-sided heart failure suggested by contrast reflux into the hepatic veins. 3. Interstitial pulmonary edema with small bilateral pleural effusions. 4. Cirrhotic morphology of the liver suspected. Further evaluation by right upper quadrant ultrasound on an elective basis is recommended. 5. Gynecomastia. EKG Data: ekg 08/26/2019 NSR, < [address] elevation inferior leads with St depression precordial and 1/aVL ekg repeat 08/26/[address] segment changes with persistent inferior T wave inversions ekg 08/27 nsr 100 bpm, inferior and precordial ischemia s/t changes Transthoracic Echocardiogram Study Date: 08/27/2019 Conclusions Summary: - Left ventricle: The cavity size is normal. Wall thickness is mildly increased. Systolic function is reduced study is non-diagnostic to evaluate LVEF or wall motion - Right ventricle: Not well visualized. - Atrial septum: No defect or patent foramen ovale is identified. - Pulmonary arteries: Systolic pressure can not be accurately estimated. - No significant valvular abnormalities noted. Recommendations: None prior for comparison, will arrange limited study with definity Wednesday08/28/2019 Assessment/Plan 1. ACS 2. CHF 3. Alcohol cirrhosis 4. Macrocytic anemia - continue aspirin 81 mg po daily, brilinta 90 mg po bid and heparin gtt - change metoprolol to long acting 50 mg po bid (Ordered) - restart home lisinopril at 2.5 (home dose 10) - ordered - lasix 20 mg po daily (ordered) - ETOH withdrawal protocol - Lipitor 40 mg daily, LFt's and lipids noted noted - GI consult recommendations (Dr. Nolen) pending - Prior records requested - Repeat limited echo Wednesday with definity - check b12 and folate - ordered (supplementation noted) - recheck bnp and troponin 2/3 (ordered) - Cardiac catheterization with intent for revascularization indicated and recommended. Risks, benefits and alternatives discussed and patient wishes to proceed. Will plan pending GI evaluation Thank you for allowing me to participate in the cardiovascular care of this patient. Please do not hesitate to contact me with questions or concerns.
[2019-08-27] MEDS: Heparin DRIP 25,000 UNITS(*) 25,000 UNITS/500 ML BAG IV SCH (13:34)
--- NOTE | 2019-08-27 17:54 | CONS ---
GASTROENTEROLOGY CONSULTATION DATE OF CONSULT: 09/14 CONSULTING PHYSICIANS: Dr. Monica Marion, Dr. Parviz Tamayo, Dr. Lucio Gayle. REASON FOR CONSULTATION: Macrocytic anemia in a man with recent CT, some congestive failure and a known history of compensated cirrhosis. HISTORY: This 79-year-old man developed shortness of breath. There was uncertainty as to whether he had chest pain, but he did describe discomfort. His troponins have gone up. He was short of breath in the hospital and earlier today received IV furosemide. Cardiac catheterization is being strongly considered, but his risk for dual- antiplatelet therapy following probable implantation of a drug-eluting stent is a major issue. He has a history of hypertension and had renal artery stenting here by Dr Leal in 2002. At home, he has been treated with antihypertensives and statin. He has a history of heavy drinking and gave it up for 18 to 24 months few years back and then gradually began having wine at social events and then more frequently and he says he began drinking bourbon around 6 weeks ago. He had been a smoker for many years up until about age 49. PAST MEDICAL HISTORY: 1. Hypertension - treated by Dr. Gayle. 2. Renal artery stenosis - treated by Dr. Leal in 2002. 3. Dyslipidemia - on a statin. 4. Cirrhosis - he says suspicion about this began when he had ecchymosis on his arms. He was taking aspirin and reduced it to just a baby aspirin. He was also found to be thrombocytopenia. There was edema and fluid accumulation and he was placed on diuretics by a nurse practitioner in the [place] gastroenterology office. He says his potassium plummeted and he stopped it. He has not been back on diuretics except possibly a thiazide which he stopped somewhere around [place]. He has not been seen back by the gastroenterology office for 3 years. FAMILY HISTORY: No history of liver disease. His mother had hypertension. 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 REVIEW OF SYSTEMS: He has constipation from time to time, but does not take laxatives. He has never been treated for a peptic condition and Dr. Gayle has not needed to treat him for any gastrointestinal concerns. He denies NSAID use other than the low dose aspirin. Multiple trade names are reviewed. Over the last year in general, he has been trying to lose weight, saying he has been on a 1000 calorie diet and has taken off 40 pounds. He has had numerous colonoscopies, but maintains nothing has been seen on them. The last two have been done by Dr Osorio through the [facility]. Remarkably, he had no hospital visits between April 2004 and admission yesterday. There is a history of gout. EXAM: Earlier today, he was short of breath in bed and even sitting slightly up at 30 degrees. His weight is listed at 188, temperature 98.4, pulse 100 and regular, blood pressure 118/60. Skin shows multiple ecchymoses over forearms HEENT exam is remarkable for some balding, but no other abnormality. He is anicteric. He has no adenopathy. Breath sounds are intact and clear bilaterally (after diuresis). Heart tones regular. The abdomen is symmetric, minimally obese without any palpable abnormality. There is no distention. He has no peripheral edema. Digital rectal shows greasy, very soft brown stool - Hemoccult negative LABS: Hemoglobin 11.2, hematocrit 34, MCV 108, platelets 116. INR 0.97. AST 48, ALT 19, bilirubin 1.9, albumin 3.4. TSH 3.39. His troponins are up, maximum of 19.55 at 1 a.m. and bilirubin 1.9. Echocardiogram - pending RADIOLOGY REVIEW: The CT of the chest with contrast (pulmonary embolism protocol) shows a normal azygos vein, unremarkable appearing mid to distal esophagus. There are dilated vessels in the cleft between the 2 hepatic lobes and a couple of vascular structures presumably veins just anterior to the liver. There is no ascites. 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 He had some ascites then and despite some drinking after it and now more recently with signs in his transaminases of possible early alcoholic hepatitis at this time, he has not had a persistent ascites problem. His hepatic function is mostly compensated, though the albumin of 3.4 and the bilirubin 1.9 likely reflect some impairment. Fortunately, his INR is normal. The question is what is his risk of gastrointestinal bleeding should cardiac catheterization and stent placement be done with dual antiplatelet treatment This is certainly elevated though most studies suggest for most patients that usual cardiac care be given. Further prognostication could be obtained by a liver Doppler ultrasound and if he qualifies for monitored anesthesia, an upper endoscopy to look for portal hypertensive gastropathy.and varices. Empiric PPI therapy during antiplatelet treatment would certainly be indicated almost regardless. [id number]/[facility] #: [id number] MTDD
[2019-08-27] MEDS: Metoprolol Succinate XL TAB* 50 MG PO SCH (21:36)
[2019-08-27] MEDS: Atorvastatin* 40 MG TAB PO SCH (21:36)
[2019-08-28] MEDS ORDERED: Magnesium Sulfate 1 GM IV* 1 GM/100 ML BAG IV ONE (01:27)
[2019-08-28 06:04] LABS: ABS Eosinophils 0.4 10^3/ul (0-0.6); ABS Lymphocytes 1.7 10^3/ul (1.0-4.8); ABS Monocytes 0.8 10^3/ul (0-0.8); ABS Neutrophils 4.7 10^3/ul (1.5-7.7); Eosinophil % 5.5 %; Hematocrit 33 % (42-52); Hemoglobin 11.1 g/dL (14.0-18.0); Mean Corpuscular HGB Conc 34 g/dL (31-36); Mean Corpuscular Hemoglobin 36 pg (27-31); Mean Corpuscular Volume 107 fL (80-94); Mean Platelet Volume 10.7 fL (7.4-10.4); Nucleated Red Blood Cells % 0.1; Platelet Count 124 10^3/uL (150-450); Red Blood Count 3.07 10^6 /uL (4.18-5.48); Red Cell Distribution Width 15 % (10-15); White Blood Count 7.6 10^3/uL (3.5-10.8)
[2019-08-28 06:06] LABS: Anion Gap 6 mmol/L (2-11); BUN/Creatinine Ratio 29.1 (8-20); Blood Urea Nitrogen 34 mg/dL (6-24); CO2 Carbon Dioxide 23 mmol/L (22-32); Calcium 8.2 mg/dL (8.6-10.3); Chloride 108 mmol/L (101-111); EGFR African American 73.1 (>60); EGFR Non-African American 60.4 (>60); Glucose 108 mg/dL (70-100); Potassium 3.7 mmol/L (3.5-5.0); Sodium 137 mmol/L (135-145)
[2019-08-28 06:11] LABS: Troponin I 8.45 ng/mL (<0.03)
[2019-08-28 06:57] LABS: Folate > 20.00 ng/mL (>3.99)
[2019-08-28] MEDS ORDERED: Perflutren Lipid Microsphere* 3 ML VIAL ONE (07:39)
[2019-08-28] MEDS: Metoprolol Succinate XL TAB* 50 MG PO SCH ×2 (09:11→21:57)
[2019-08-28] MEDS: Cyanocobalamin TAB* 500 MCG PO SCH (09:11)
[2019-08-28] MEDS: Ticagrelor* 90 MG TAB PO SCH ×2 (09:11→21:57)
[2019-08-28] MEDS: Aspirin EC TAB* 81 MG TAB.EC PO SCH (09:12)
[2019-08-28] MEDS: Multivitamins/Minerals TAB PO SCH (09:12)
[2019-08-28] MEDS: Lisinopril TAB* 5 MG PO SCH (09:12)
[2019-08-28] MEDS: Thiamine TAB* 100 MG TAB PO SCH (09:12)
[2019-08-28] MEDS: Allopurinol TAB* 300 MG PO SCH (09:12)
[2019-08-28] MEDS: Folic Acid TAB* 1 MG PO SCH (09:12)
[2019-08-28] MEDS: Furosemide TAB* 20 MG PO SCH (09:13)
--- NOTE | 2019-08-28 09:55 | PN ---
Subjective Date of Service: 08/28/19 - NSTEMI Interval History: f/u ACS, CHF, alcohol cirrhosis - Diuresing, breathing improving - no chest discomfort since Wednesday per patient. - echo no significant valve issues, moderate LV dysfunction non-diagnostic, repeat limited is pending. -+ brown urine ? d/t liver disease. Per nurse has been intermittent for the past 24 hours, patient states it is usually " yellow" at home Medications Active Medications: Acetaminophen (Tylenol Tab*) 650 mg PO Q4H PRN PRN Reason: MILD PAIN or TEMP > 100.4 Allopurinol (Zyloprim Tab*) 300 mg PO DAILY [facility] Last Admin: 08/28/19 09:12 Dose: 300 mg Aspirin (Aspirin Ec Tab*) 81 mg PO DAILY [facility] Last Admin: 08/28/19 09:12 Dose: 81 mg Atorvastatin Calcium (Lipitor*) 40 mg PO 2100 [facility] Last Admin: 08/27/19 21:36 Dose: 40 mg Cyanocobalamin (Vitamin B12 Tab*) 1,000 mcg PO DAILY [facility] Last Admin: 08/28/19 09:11 Dose: 1,000 mcg Folic Acid (Folvite Tab*) 1 mg PO DAILY [facility] Last Admin: 08/28/19 09:12 Dose: 1 mg Furosemide (Lasix Tab*) 20 mg PO DAILY [facility] Last Admin: 08/28/19 09:13 Dose: 20 mg Heparin Sodium (Porcine) (Heparin Vial(*)) 0 units IV .BOLUS PRN PRN Reason: BOLUS PER HEPARIN DRIP Last Admin: 08/27/19 21:28 Dose: 4,000 units Heparin Sodium/Dextrose (Heparin Drip 25,000 Units(*)) 25,000 units in 500 mls @ 0 mls/hr IV PER RATE [facility]; Protocol Last Admin: 08/27/19 13:34 Dose: 23 mls/hr Lisinopril (Prinivil Tab*) 2.5 mg PO DAILY [facility] Last Admin: 08/28/19 09:12 Dose: 2.5 mg Lorazepam (Ativan Tab(*)) 0 - 6 mg PO .PER [facility] PROTOCOL [facility]; Protocol Last Admin: 08/27/19 02:27 Dose: 2 mg Metoprolol Succinate (Toprol Xl Tab*) 50 mg PO BID [facility] Last Admin: 08/28/19 09:11 Dose: 50 mg Multivitamins/Minerals (Theragran/Minerals Tab*) 1 tab PO DAILY [facility] Last Admin: 08/28/19 09:12 Dose: 1 tab Thiamine HCl (Vitamin B-1 Tab*) 100 mg PO DAILY [facility] Last Admin: 08/28/19 09:12 Dose: 100 mg Ticagrelor (Brilinta*) 90 mg PO BID [facility] Last Admin: 08/28/19 09:11 Dose: 90 mg Objective Vital Signs: Temp Pulse Resp BP Pulse Ox 97.6 F 79 16 117/66 100 08/28/19 08:00 08/28/19 08:00 08/28/19 08:00 08/28/19 08:00 08/28/19 08:00 Oxygen Devices in Use Now: Nasal Cannula Appearance: not toxic appearing, very pleasant Ears/Nose/Mouth/Throat: Clear Oropharnyx, Mucous Membranes Moist Neck: Trachea Midline, - - uncertain jvp Respiratory: - - mild tachypnea and increased work of breathing, mild rales bases Cardiovascular: RRR, - - + mitral murmur. no gallop or rub Abdominal: NL Sounds; No Tenderness; No Distention Extremities: No Clubbing, Cyanosis Skin: No Rash or Ulcers Neurological: Alert and Oriented x 3 Lines/Tubes/Other Access: Clean, Dry and Intact Peripheral IV Laboratory Results: 08/28/19 05:37 08/28/19 05:37 INR (Anticoag Therapy) 0.97 (0.82-1.09) 08/26/19 10:03 APTT 85.7 seconds (26.0-38.0) H 08/28/19 03:26 Total Bilirubin 1.90 mg/dL (0.2-1.0) H 08/26/19 10:03 AST 48 U/L (13-39) H 08/26/19 10:03 ALT 19 U/L (7-52) 08/26/19 10:03 Alkaline Phosphatase 89 U/L (34-104) 08/26/19 10:03 CK-MB (CK-2) 53.3 ng/mL (0.6-6.3) H 08/26/19 10:03 B-Natriuretic Peptide > 1300 pg/mL (<=100) H 08/28/19 05:37 Total Protein 6.2 g/dL (6.4-8.9) L 08/26/19 10:03 Albumin 3.4 g/dL (3.2-5.2) 08/26/19 10:03 Globulin 2.8 g/dL (2-4) 08/26/19 10:03 Albumin/Globulin Ratio 1.2 (1-3) 08/26/19 10:03 Triglycerides 57 mg/dL 08/27/19 05:11 Cholesterol 107 mg/dL 08/27/19 05:11 LDL Cholesterol 36 mg/dL 08/27/19 05:11 HDL Cholesterol 59.2 mg/dL 08/27/19 05:11 TSH 3.39 mcIU/mL (0.34-5.60) 08/26/19 10:03 08/26/19 08/26/19 08/26/19 10:03 13:02 16:01 Troponin I 3.55 H* 7.80 H* 8.27 H* 08/26/19 08/27/19 08/27/19 21:52 01:05 05:11 Troponin I 19.11 H* 19.55 H* 14.72 H* 08/28/19 05:37 Troponin I 8.45 H* Laboratory Results - last 24 hr 08/27/19 08/27/19 08/28/19 12:25 18:23 03:26 WBC RBC Hgb Hct MCV MCH MCHC RDW Plt Count MPV Neut % (Auto) Lymph % (Auto) [place] % (Auto) Eos % (Auto) Baso % (Auto) Absolute Neuts (auto) Absolute Lymphs (auto) Absolute Monos (auto) Absolute Eos (auto) Absolute Basos (auto) Absolute Nucleated RBC Nucleated RBC % APTT 63.9 H 34.9 85.7 H Sodium Potassium Chloride Carbon Dioxide Anion Gap BUN Creatinine Est GFR ( Amer) Est GFR (Non-Af Amer) BUN/Creatinine Ratio Glucose Calcium Magnesium Troponin I B-Natriuretic Peptide Vitamin B12 Folate 08/28/19 08/28/19 08/28/19 05:37 05:37 05:37 WBC 7.6 RBC 3.07 L Hgb 11.1 L Hct 33 L MCV 107 H MCH 36 H MCHC 34 RDW 15 Plt Count 124 L MPV 10.7 H Neut % (Auto) 61.4 Lymph % (Auto) 22.0 [place] % (Auto) 10.5 Eos % (Auto) 5.5 Baso % (Auto) 0.6 Absolute Neuts (auto) 4.7 Absolute Lymphs (auto) 1.7 Absolute Monos (auto) 0.8 Absolute Eos (auto) 0.4 Absolute Basos (auto) 0.0 Absolute Nucleated RBC 0.0 Nucleated RBC % 0.1 APTT Sodium 137 Potassium 3.7 Chloride 108 Carbon Dioxide 23 Anion Gap 6 BUN 34 H Creatinine 1.17 Est GFR ( Amer) 73.1 Est GFR (Non-Af Amer) 60.4 BUN/Creatinine Ratio 29.1 H Glucose 108 H Calcium 8.2 L Magnesium 2.0 Troponin I 8.45 H* B-Natriuretic Peptide > 1300 H Vitamin B12 1070 H Folate > 20.00 Diagnostic Imaging: Exam Date: 08/26/19 CTA CHEST IMPRESSION: 1. No pulmonary embolism 2. Right-sided heart failure suggested by contrast reflux into the hepatic veins. 3. Interstitial pulmonary edema with small bilateral pleural effusions. 4. Cirrhotic morphology of the liver suspected. Further evaluation by right upper quadrant ultrasound on an elective basis is recommended. 5. Gynecomastia. EKG Data: ekg 08/26/2019 NSR, < [address] elevation inferior leads with St depression precordial and 1/aVL ekg repeat 08/26/[address] segment changes with persistent inferior T wave inversions ekg 08/27 nsr 100 bpm, inferior and precordial ischemia s/t changes ekg 08/28; Sinus rhythm rate 90 with inferolateral TWI. Transthoracic Echocardiogram Study Date: 08/27/2019 Conclusions Summary: - Left ventricle: The cavity size is normal. Wall thickness is mildly increased. Systolic function is reduced study is non-diagnostic to evaluate LVEF or wall motion - Right ventricle: Not well visualized. - Atrial septum: No defect or patent foramen ovale is identified. - Pulmonary arteries: Systolic pressure can not be accurately estimated. - No significant valvular abnormalities noted. Recommendations: None prior for comparison, will arrange limited study with definity Wednesday08/28/2019 Assessment/Plan #1 NSTEMI; Sudden onset c/o chest pain with SOB, last episode was Wednesday. Troponin peaked at 19.5 08/27/2019. ECG shows new inferolateral TWI. On ASA 81/day , Brilinta 90 BID, IV heparin therapy. Given Troponin has peaked and is trending down with no recurrent symptoms will d/c IV heparin. Continue DAPT. He is to have EGD today to determine if there is any presence of esophageal varices to help risk stratify bleeding risk for potential cardiac catheterization given h/o cirrhosis and thrombocytopenia. He does have new + dark brown urine. Although this is new since starting ASA and Brilinta therapy it could be due to cirrhosis. UA updated. To have limited echo today. Continue bblocker and statin therapy. #2 H/o Cirrhosis; GI following. PLTs stable on DAPT. reported history of alcoholism with recent relapse. #3 Macrocytic anemia; hgb stable. likely due to above #2. #4 Thrombocytopenia; Plts are 124,000 appears to be stable on DAPT. #5 Disposition pending course, patient full code. I reviewed indication for LHC , risk/benefits. he is aware that he is to have an EGD today to help risk stratify bleeding risk given h/o cirrhosis and potential need for DAPT given NSTEMI. Of note he has new dark brown urine noted at bedside. I updated a UA. This has occurred since he was placed on DAPT. He readily admits to being off of ASA since the fall, thus was not taking it routinely for several months leading up to his hospitalization. will continue medical therapy and await GI recommendations following EGD. Discussed with Dr. Cassidy who agrees with above assessment and plan. Attending: Roshan Cassidy
[2019-08-28 10:03] LABS: Urine Appearance Cloudy; Urine Bilirubin Negative (Negative); Urine Blood 3+ (Negative); Urine Color Amber; Urine Glucose Negative (Negative); Urine Ketones Negative (Negative); Urine Nitrite Negative (Negative); Urine Protein 2+(100 mg/dL) (Negative); Urine Specific Gravity 1.017 (1.010-1.030); Urine Urobilinogen Negative (Negative)
[2019-08-28 10:08] LABS: Urine Bacteria Absent (Absent); Urine Red Blood Cell 3+(>10/hpf) (Absent); Urine White Blood Cell 3+(>20/hpf) (Absent)
--- NOTE | 2019-08-28 12:45 | ECHO ---
*[facility]* [place] [address] Fax #: [phone] Limited Transthoracic Echocardiogram Patient: Vipul Oliver : 1940 Study Date: 08/28/2019 Age: 79 Gender: M HR: 79 bpm Height: 70.9 in /180 cm BSA: 2.09 m^2 Weight: 189.2 lb /86 kg BMI: 26.5 kg/m^2 *Seam Stayer: * Calli Pabon [facility] *Referring Physician: * Parviz Tamayo MD *Reading Physician: * Roshan Cassidy MD Indications: Congestive Heart Failure. History: Chronic obstructive pulmonary disease. Risk factors: Hypertension. Conclusions Summary: - Left ventricle: Not well visualized. The estimated ejection fraction is 25-30%. Diffuse hypokinesis with regional variations. - Compared to complete study of 08/27/2019, the left ventricle function is better visualized Study data: Transthoracic echocardiogram, limited study. Procedure: Transthoracic echocardiography was performed. Image quality was suboptimal. Intravenous Definity , 4 mlswas administered. Location: Bedside. Patient status: Inpatient. Patient room number: 441 01. Rhythm: Atrial fibrillation. Findings Left ventricle: Not well visualized. The estimated ejection fraction is 25-30%. Diffuse hypokinesis with regional variations. Prepared and electronically signed by Roshan Cassidy MD 08/28/2019 12:45
[2019-08-28] MEDS ORDERED: fentaNYL* 50 MCG/ML 2 ML VIAL (100 MCG VIAL) ONE (14:05)
[2019-08-28] MEDS ORDERED: Midazolam* 1 MG/ML 10 ML VIAL (10 MG) ONE (14:05)
--- NOTE | 2019-08-28 14:27 | PN ---
Progress Note - Progress Note Date of Service: 08/28/19 Note: EGD report: 3 mg IV versed, no fent E---->no varices, large HH G--->no gastric varices, no PHG, no ulcers, hpylori bx Pending D--->nml No signs/stigmata of bleeding, cleared from GI for Cath D/w Dr Khanh Pedraza MD
--- NOTE | 2019-08-28 14:59 | PN ---
Subjective Date of Service: 08/28/19 Interval History: HOSPITALIST PROGRESS NOTE Patient seen and examined at bedside. Care reviewed and d/w Nicole Anguiano RN. He feels better today. Breathing is easier, denies chest pressure. Family History: Unchanged from Admission Social History: Unchanged from Admission Past Medical History: Unchanged from Admission Objective Active Medications: Acetaminophen (Tylenol Tab*) 650 mg PO Q4H PRN PRN Reason: MILD PAIN or TEMP > 100.4 Allopurinol (Zyloprim Tab*) 300 mg PO DAILY [facility] Last Admin: 08/28/19 09:12 Dose: 300 mg Aspirin (Aspirin Ec Tab*) 81 mg PO DAILY [facility] Last Admin: 08/28/19 09:12 Dose: 81 mg Atorvastatin Calcium (Lipitor*) 40 mg PO 2100 [facility] Last Admin: 08/27/19 21:36 Dose: 40 mg Cyanocobalamin (Vitamin B12 Tab*) 1,000 mcg PO DAILY [facility] Last Admin: 08/28/19 09:11 Dose: 1,000 mcg Folic Acid (Folvite Tab*) 1 mg PO DAILY [facility] Last Admin: 08/28/19 09:12 Dose: 1 mg Furosemide (Lasix Tab*) 20 mg PO DAILY [facility] Last Admin: 08/28/19 09:13 Dose: 20 mg Heparin Sodium (Porcine) (Heparin Vial(*)) 0 units IV .BOLUS PRN PRN Reason: BOLUS PER HEPARIN DRIP Last Admin: 08/27/19 21:28 Dose: 4,000 units Lisinopril (Prinivil Tab*) 2.5 mg PO DAILY [facility] Last Admin: 08/28/19 09:12 Dose: 2.5 mg Lorazepam (Ativan Tab(*)) 0 - 6 mg PO .PER [facility] PROTOCOL [facility]; Protocol Last Admin: 08/27/19 02:27 Dose: 2 mg Metoprolol Succinate (Toprol Xl Tab*) 50 mg PO BID [facility] Last Admin: 08/28/19 09:11 Dose: 50 mg Multivitamins/Minerals (Theragran/Minerals Tab*) 1 tab PO DAILY [facility] Last Admin: 08/28/19 09:12 Dose: 1 tab Thiamine HCl (Vitamin B-1 Tab*) 100 mg PO DAILY [facility] Last Admin: 08/28/19 09:12 Dose: 100 mg Ticagrelor (Brilinta*) 90 mg PO BID [facility] Last Admin: 08/28/19 09:11 Dose: 90 mg Vital Signs - 8 hr 08/28/19 08/28/19 08:00 10:00 Temperature 97.6 F 97.8 F Pulse Rate 79 76 Respiratory 16 20 Rate Blood Pressure 117/66 114/59 (mmHg) O2 Sat by Pulse 100 99 Oximetry Oxygen Devices in Use Now: Nasal Cannula Appearance: Pleasant elderly gentleman sitting up in bed in NAD Eyes: No Scleral Icterus Ears/Nose/Mouth/Throat: Mucous Membranes Moist Neck: Trachea Midline Respiratory: Symmetrical Chest Expansion and Respiratory Effort, - - BS+ bilaterally with faint bibasilar crackles Cardiovascular: RRR - Notmal S1 and S2 Extremities: - - Mild bilateral LE edema Neurological: Alert and Oriented x 3, NL Muscle Strength and Tone Result Diagrams: 08/28/19 05:37 08/28/19 05:37 Assess/Plan/Problems-Billing Assessment: Mr Oliver is a 79yo M with PMH of HTN, HLD, gout, right renal artery stenosis s/p stent, alcohol abuse, liver cirrhosis, who presented to ED with c/ o progressive dyspnea, found to have ACS and newly diagnosed CHF. - Patient Problems (1) CHF (congestive heart failure) Comment: - Newly diagnosed. - Echocardiogram showed EF 25-30% with diffuse hypokinesis with regional variations. - Continue diuresis with Furosemide. - It could be associated with ischemic CMP, but it could also be ETOH induced. (2) ACS (acute coronary syndrome) Comment: - Troponin peaked at 19.5. - Chest pain free all along. - Cardiology input appreciated. - Continue Aspirin, Brilinta, Metoprolol, and Atorvastatin. - D/c heparin drip. - Plan for cardiac cath after GI evaluation completed. (3) Alcohol abuse Comment: - Continue WAM protocol. (4) Liver cirrhosis Comment: - Patient continues to drink. - GI evaluation prior to cardiac cath. (5) Gout Comment: - Continue Allopurinol. (6) DVT prophylaxis Comment: - SQ Heparin. (7) Full code status Status and Disposition: Inpatient.
--- NOTE | 2019-08-28 15:48 | PRO ---
CC: Dr. Lucio Gayle * DATE OF PROCEDURE: 08/28/2019. PROCEDURE PERFORMED: EGD. INDICATION: Preoperative evaluation for a cardiac catheterization, history of cirrhosis, evaluation of varices. REFERRING PHYSICIAN: Dr. Lucio Gayle. MEDICATIONS GIVEN: 3 mg IV Versed, no Demerol or Fentanyl. PROCEDURE: After the EGD procedure, including the risks, benefits, and alternatives, not limited to perforation, surgery and/or were explained to the patient, written consent was then obtained. IV medication was given and a bite- block was placed between the teeth. An Olympus pediatric gastroscope was then inserted into the patient's mouth, advanced down the esophagus, into the stomach and into the distal duodenum. In the esophagus at the GE junction, the Z-line was intact. No erosive esophagitis, stricture, or ring was seen. No esophageal varices were seen. The scope was advanced through the GE junction into the body of the stomach. Retroflex view was unremarkable. No gastric varices were seen. Forward view also was unremarkable. An H. pylori biopsy was obtained. The scope was advanced through a widely patent pylorus, into the duodenal bulb, and into the distal duodenum, both of which were unremarkable. The scope was then withdrawn from the patient. He tolerated the procedure well and was returned to the recovery room in stable condition. IMPRESSION: 1. Complete upper endoscopy into the distal duodenum with biopsies. 2. Biopsy for H. pylori. 3. No abnormalities were seen that could be a potential for bleeding sites, especially any ulcers or varices. This was communicated with his drop man, Dr. Cassidy. [id number]/[facility] #: [id number] [facility]
[2019-08-28] MEDS: Atorvastatin* 40 MG TAB PO SCH (21:57)
[2019-08-28] MEDS: Heparin VIAL(*) 5000 UNITS/ML VIAL (FIVE THOUSAND) SUBCUT SCH (21:57)
[2019-08-28] MEDS ORDERED: NS 0.9% 1000 ML** 1,000 ML IV SCH (23:55)
[2019-08-29] MEDS: Heparin VIAL(*) 5000 UNITS/ML VIAL (FIVE THOUSAND) SUBCUT SCH ×4 (05:07→20:57)
[2019-08-29] MEDS ORDERED: Diazepam TAB(*) 5 MG PO PRN (08:00)
[2019-08-29] MEDS ORDERED: diPHENhydraMINE PO* 25 MG PO PRN (08:00)
[2019-08-29] MEDS: Thiamine TAB* 100 MG TAB PO SCH (08:47)
[2019-08-29] MEDS: Furosemide TAB* 20 MG PO SCH (08:47)
[2019-08-29] MEDS: Metoprolol Succinate XL TAB* 50 MG PO SCH ×2 (08:47→22:41)
[2019-08-29] MEDS: Cyanocobalamin TAB* 500 MCG PO SCH (08:47)
[2019-08-29] MEDS: Ticagrelor* 90 MG TAB PO SCH (08:47)
[2019-08-29] MEDS: Folic Acid TAB* 1 MG PO SCH (08:47)
[2019-08-29] MEDS: Lisinopril TAB* 5 MG PO SCH (08:47)
[2019-08-29] MEDS: Allopurinol TAB* 300 MG PO SCH (08:47)
[2019-08-29] MEDS: Multivitamins/Minerals TAB PO SCH (08:47)
[2019-08-29] MEDS: Aspirin EC TAB* 81 MG TAB.EC PO SCH (08:47)
[2019-08-29] MEDS ORDERED: fentaNYL* 50 MCG/ML 2 ML VIAL (100 MCG VIAL) ONE (09:58)
[2019-08-29] MEDS ORDERED: Heparin(*) 1000 UNIT/ML 10 ML VIAL CATH LAB IV ONE (09:58)
[2019-08-29] MEDS ORDERED: Midazolam* 1 MG/ML 5 ML VIAL (5 MG) ONE (09:58)
[2019-08-29] MEDS ORDERED: diPHENhydraMINE PO* 25 MG ONE (09:59)
[2019-08-29] MEDS ORDERED: Diazepam TAB(*) 5 MG ONE (09:59)
[2019-08-29] MEDS ORDERED: VERAPAMIL 2.5 MG/ML 2 ML VIAL ** 5 mg/2 ml ONE (09:59)
[2019-08-29] MEDS ORDERED: Heparin 2 UNITS/ML IVPREMIX* 2,000 ML IV ONE (10:00)
[2019-08-29] MEDS ORDERED: Lidocaine 1% INJ* 10 MG/ML 30 ML SDV ONE (10:00)
[2019-08-29] MEDS ORDERED: nitroGLYCERIN DRIP* 25,000 MCG/250 ML BTL ONE (10:00)
[2019-08-29] MEDS ORDERED: Iodixanol 320 (CONTRAST) 100 ML SDV ONE (10:01)
[2019-08-29] MEDS: Atorvastatin* 40 MG TAB PO SCH (20:24)
--- NOTE | 2019-08-29 22:04 | TRS ---
CC: Dr. Gayle; Dr. Parviz Tamayo; Dr. Cassidy; Dr. Laura from Cardiology Department from [facility]; Dr. Margarito Pedraza * TRANSFER SUMMARY: DATE OF ADMISSION: 08/26/19 DATE OF ANTICIPATED TRANSFER: To [facility] under the care of Dr. Laura's service is 08/30/19. PRIMARY CARE PROVIDER: Dr. Gayle. DISPOSITION AT DISCHARGE: Transferred to [facility]. CONDITION ON DISCHARGE: Stable. DISCHARGE DIAGNOSES: 1. Acute coronary syndrome in a patient who is diagnosed with severe coronary artery disease of all the 3 vessels and the patient is being transferred to [facility] in consideration of coronary artery bypass grafting. 2. Congestive heart failure with cardiomyopathy, ischemic EF of 25%. SECONDARY DIAGNOSES: 1. Known liver cirrhosis due to alcohol abuse. 2. Hypertension. 3. Hyperlipidemia. 4. Gout. 5. Peripheral vascular disease with right renal artery stenosis status post stenting in 2002. MEDICATIONS PRIOR TO DISCHARGE: Include: 1. Thiamin 100 mg daily. 2. Multivitamin 1 tablet daily. 3. Metoprolol succinate 50 mg b.i.d. 4. Lorazepam as per alcohol withdrawal protocol. 5. Lisinopril 2.5 mg daily. 6. Heparin for DVT prophylaxis subcutaneously. 7. Furosemide 20 mg daily p.o. 8. Folic acid 1 mg daily. 9. Vitamin B12 of 1000 mcg daily. 10. Lipitor 40 mg daily. 11. Aspirin 81 mg daily. 12. Allopurinol 300 mg daily. 13. Acetaminophen on a p.r.n. basis. LABORATORY DATA: Performed during the hospital stay included: On 08/28/19, white blood cell count of 7.6, hemoglobin 11.1, hematocrit 33, and MCV was 107, and platelets of 124. PTT was 31.5 on 08/28/19. On 08/28/19, sodium 137, potassium 3.7, chloride 108, carbon-dioxide 23, BUN 34 , creatinine 1.17. Troponin maximum level was at 19.55 documented on 08/27/19 that was at peak. Brain natriuretic peptide on 08/28/19 was above 1300. Vitamin B12 level was at 1070, folate of above 20, TSH was 3.39 at admission. Liver function test obtained at admission showed bilirubin of 1.9, AST of 48, ALT of 19, alkaline phosphatase of 89. Portal vein ultrasound obtained on 08/28/19. Impression: "Findings consistent with cirrhosis without significant focal hepatic abnormality. Patent portal and hepatic veins with normal direction of flow." Transthoracic echocardiogram obtained on 08/27/19 showed EF of 25% to 30% with diffuse hypokinesis with regional variations. CT angiogram of the chest obtained on 08/26/19 showed impression: "No pulmonary embolus. Right sided heart failure suggested by contrast refluxing into the hepatic veins. This did show pulmonary edema with small bilateral pleural effusions. Cirrhotic morphology of the liver suspected. Further evaluation by right upper quadrant ultrasound on an elective basis is recommended. Gynecomastia." PROCEDURES DURING THE HOSPITAL STAY: Included: On 08/28/19, the patient had an upper endoscopy performed by Dr. Margarito Pedraza from Gastroenterology which showed no abnormalities were seen that could be potential for bleeding sites. Especially any ulcers or varices. The patient's cardiac catheterization was obtained on 08/29/19. The official report is still pending, but as per verbal report received by Dr. Cassidy, the patient has severe 3-vessel coronary artery disease that will require to be bypassed. The patient's portable chest x-ray at admission. Impression: "No acute cardiopulmonary process." Fasting lipid profile showed triglycerides of 57, cholesterol total of 107, LDL of 36, and HDL of 59. CONSULTATIONS DURING THE HOSPITAL STAY: Included: Dr. Tamayo and Dr. Cassidy from Cardiology as well as Dr. Margairto Pedraza from Gastroenterology. 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 For further details of the patient's presentation, please see history and physical dictated by Dr. Roman at admission. Shortly, the patient was treated with diuresis, but was also noted to have macrocytic anemia. He was also noted to be in acute coronary syndrome with troponin that peaked at 19 on 08/26/19. Dr. Roman consulted Cardiology, Dr. Tamayo and Dr. Cassidy and cardiac catheterization was recommended, but prior to that the patient was recommended to have an upper endoscopy performed to rule out GI bleeding as the cause of the patient's anemia. The patient did have an upper endoscopy, it showed no source of GI bleeding. His stool was also negative for blood. The patient had a CLOtest obtained during the EGD which was also negative. After that, the EGD was reported negative. Dr. Cassidy further proceeded with cardiac catheterization on 08/29/19. He noted that the patient had severe 3-vessel coronary artery disease and recommended for the patient to be transferred to [facility] for evaluation for coronary bypass grafting. Dr. Cassidy discussed the case with vascular cardiothoracic surgeon Dr. Laura who accepted the patient for transfer. The patient has planed to go to [facility] on 08/30/19. PHYSICAL EXAMINATION: Blood pressure of 111/47, heart rate of 78 and regular, respiratory rate 14, oxygen saturation 98% on 2 L of oxygen nasal cannula, temperature of 97.5. General: The patient is a very pleasant 79-year-old male who is in no acute distress. The patient is alert, awake, and oriented x3. HEENT: Head atraumatic and normocephalic. Eyes: Pupils are equal and reactive to light and accommodation. Oropharynx is clear. Mucosa moist. Neck: Supple. No JVD. No bruits bilaterally. Cardiovascular: Regular rate and rhythm. No murmur. Respiratory: Grossly clear to auscultation apart from faint crackles at bilateral bases. Abdomen: Soft and nontender. Bowel sounds present in all 4 quadrants. Extremities: There is trace bilateral ankle edema. Pulses are +2 bilaterally. No clubbing or cyanosis. On neuro evaluation, speech is clear. Cranial nerves II through XII grossly intact. Motor strength is 5/5 bilaterally. The patient is being transferred to [facility] on 08/30/19 for consideration of coronary artery bypass grafting. Please note that the patient was informed about that this facility is the closest facility and he may be burdened with payment of the difference between [facility] and [facility] and distance of ambulance transfer. He is aware of that and he accepts that. Please note that this is a short summary of the patient's hospitalization. Please refer to further medical records for details. TIME SPENT: Approximately 45 minutes was spent on the patient's discharge. [id number]/[facility] [place] [place] #: [id number] [facility]
[2019-08-29] MEDS ORDERED: Metoprolol Succinate XL TAB* 25 MG PO ONE (22:38)
--- NOTE | 2019-08-30 04:07 | CATH ---
CARDIAC CATHETERIZATION: DATE OF PROCEDURE: 08/29/19 - ROOM #441 PROCEDURE: Cardiac catheterization including coronary angiography. INDICATION: Acute myocardial infarction, cardiomyopathy. The patient is a 79-year-old gentleman, who came to the hospital because of chest pain. He had no EKG changes. His troponin peaked at level of 14. His echocardiogram showed moderate LV dysfunction. The patient underwent evaluation for possible GI bleeding. He had an upper endoscopy, which showed no evidence of ulcer or bleeding or gastritis. No evidence of portal hypertension. He does have a history of cirrhosis. Cardiac catheterization was recommended because of his abnormal troponin levels. DESCRIPTION OF PROCEDURE: The patient was brought to the computer lab assistant in a fasting state. Informed consent had been obtained prior to the procedure. All labs had been reviewed. The patient was placed supine on the procedure table. His right radial area was prepped and draped in the usual fashion. 1% lidocaine was used for local anesthesia. The radial artery was entered by a Seldinger technique and a guidewire was placed. Over the guidewire, a 6-Turkmen hydrophilic sheath was placed. The patient was given an infusion of heparin, nitroglycerin, and verapamil through the sheath. The patient underwent coronary angiography using a 6-Turkmen TIG catheter. At the end of the procedure , all sheaths and catheters were removed. The patient tolerated the procedure well with no complications. A total of 80 cc of Visipaque dye was used. A total of 3.5 minutes of fluoro time was used. Central aortic pressure 84/43 with mean diastolic pressure of 60 at the end of the procedure. Left main artery: The left main was normal in size. It trifurcated into the LAD, ramus artery, and circumflex artery. There was mild calcification of the proximal left main artery. There was a 50% stenosis to the distal left main artery. Left anterior descending artery: The LAD was normal in size. It had moderate calcification of the proximal and mid vessel. There was a 50% stenosis at the proximal LAD. There was a 50% stenosis at the mid LAD. The remainder of the vessel was without disease. It gave off 1 diagonal vessel. Ramus artery: The ramus artery was a moderate size vessel. It had had a proximal 60% stenosis. Left circumflex artery: The circumflex artery was normal in size. It gave off 2 obtuse marginal branches. The circumflex itself was normal in the proximal portion. At the first obtuse marginal, the circumflex had a 60% stenosis. The first obtuse marginal was without disease. The second obtuse marginal was a branching obtuse marginal. The proximal portion of that obtuse marginal had a 90% stenosis. The right coronary artery was occluded at its origin. There was left to right collaterals filling the PDA and distal right coronary artery. IMPRESSION: Three-vessel coronary artery disease as described above. Known left ventricular dysfunction with ejection fraction of 30%. RECOMMENDATION: The patient will be evaluated for coronary artery bypass surgery. [id number] #: [id number] [facility]
[2019-08-30 04:12] VITALS: BP 119/54
[2019-08-30] MEDS: Heparin VIAL(*) 5000 UNITS/ML VIAL (FIVE THOUSAND) SUBCUT SCH (04:49)
[2019-08-30 07:51] LABS: HDL Cholesterol 37.4 mg/dL
== END 2019-08-30 06:20 | disposition short-term general hospital (02) | DRG 282 ==
LOC: ED 09:46 → MEDTELE 12:19
PROVIDERS: ADMIT Internal Medicine; ATTEND Internal Medicine
PROC: 0DB68ZX Excision of Stomach, Via Natural or Artificial Opening Endoscopic, Diagnostic (ICD-10-PCS; 2019-08-28)
PROC: B211YZZ Fluoroscopy of Multiple Coronary Arteries using Other Contrast (ICD-10-PCS; principal; 2019-08-29 10:00)
DX: I24.9 Acute ischemic heart disease, unspecified (principal); I21.4 Non-ST elevation (NSTEMI) myocardial infarction; I11.0 Hypertensive heart disease with heart failure; E78.5 Hyperlipidemia, unspecified; M10.9 Gout, unspecified; I73.9 Peripheral vascular disease, unspecified; I70.1 Atherosclerosis of renal artery; G62.1 Alcoholic polyneuropathy; D53.9 Nutritional anemia, unspecified; I50.9 Heart failure, unspecified; K70.31 Alcoholic cirrhosis of liver with ascites; I25.10 Atherosclerotic heart disease of native coronary artery without angina pectoris; F10.10 Alcohol abuse, uncomplicated; D69.6 Thrombocytopenia, unspecified; E83.42 Hypomagnesemia; I25.5 Ischemic cardiomyopathy; Z87.891 Personal history of nicotine dependence; Z79.82 Long term (current) use of aspirin; Z79.899 Other long term (current) drug therapy
CPT/HCPCS: 36415; 71045; 71275; 80048; 80053; 80061; 81003; 81015; 82105; 82270; 82272; 82550; 82553; 82565; 82607; 82746; 83036; 83735; 83880; 84443; 84484; 84520; 85025; 85379; 85610; 85730; 87077; 87086; 93005; 93306; 93308; 93454; 93975; 96365; 99156; 99157; 99284; A9270-GY; C8924; J1644; J1940; J2250; J3010; J3411; J3475; Q9967